=== PATIENT | female | born 1945 | race Caucasian/White ===

== ENCOUNTER 2020-01-17 16:18 | Inpatient (IN) | payer OTHER, MEDICAID, SELFPAY ==
[~2020-01-17] VITALS: Ht 152.4 cm; Wt 65.8 kg
[~2020-01-17 16:18] MED LIST: ISOS30TE PO; LOSA50TA57 PO; METO-624 PO; SIMV20TA1 PO; SITA100T8 PO; WARF-18 PO; [UNRECOGNIZED DRUG - CODE] PO
[2020-01-17 16:29] VITALS: BP 120/81
--- NOTE | 2020-01-17 16:46 | NUR ---
12 LEAD EKG READS [address] QUESADA. UNKNOWN IF PT HAS HX OF AFIB.
[2020-01-17] MEDS ORDERED: NACL 0.9% 1,000 ML IV ONE (16:55)
--- NOTE | 2020-01-17 17:09 | NUR ---
75/F C/O CHEST TIGHTNESS AND GEN WEAKNESS X 3 WEEKS. PT HR IS FLUCTUATING FROM 80S-130s AT THIS TIME. PER PT SHE HAS A PACEMAKER. DENIES PAIN AT THIS TIME. HISTORY LIMITED 2/2 NEZ PERCE. NO FAMILY AVAILABLE AT THIS TIME. PT CONNECTED TO BEDSIDE MONITOR. PT ALERT AND APPEARS ORIENTED. 12 LEAD EKG HAS ALREADY BEEN OBTAINED AND SHOWN TO DR. QUESADA. ERMD MADE AWARE OF PT STATUS. BEDRAILS UP, BED LOCKED & LOW. HX: DM, HTN, HYPOTHYROID RX: SEE MED REC
--- NOTE | 2020-01-17 17:10 | NUR ---
EVALUATING PT AT BEDSIDE WITH SURGICAL MASK AND GLOVES ONLY.
--- NOTE | 2020-01-17 17:11 | NUR ---
XRAY AT BEDSIDE
--- NOTE | 2020-01-17 17:20 | NUR ---
CIGAR BANDER AT BEDSIDE FOR BLOOD DRAW
--- NOTE | 2020-01-17 17:38 | NUR ---
DR QUESADA AT BEDSIDE
[2020-01-17 17:39] LABS: BASOPHILS # (AUTO) 0.1 K/uL (0.00-0.22); BASOPHILS % (AUTO) 0.8 % (0.0-2.0); EOSINOPHILS # (AUTO) 0.3 K/uL (0-0.4); EOSINOPHILS % (AUTO) 3.5 % (0.0-4.0); HEMATOCRIT 35.8 % (36-48); HEMOGLOBIN 12.3 g/dL (12.0-16.0); LYMPHOCYTES % (AUTO) 23.7 % (20.5-51.1); MEAN CORPUSCULAR HEMOGLOBIN 33 pg (27-31); MEAN CORPUSCULAR HGB CONC 34 g/dL (33-37); MEAN CORPUSCULAR VOLUME 95.3 fL (80-94); MONOCYTES # (AUTO) 0.5 K/uL (0.8-1.0); NEUTROPHILS # (AUTO) 5.5 K/uL (1.8-7.7); PLATELET COUNT (AUTO) 133 K/uL (140-450); RED BLOOD CELL COUNT(AUTO) 3.76 MIL/uL (4.20-5.40); RED CELL DISTRIBUTION WIDTH 14.6 % (11.6-13.7); WHITE BLOOD COUNT (AUTO) 8.3 K/uL (4.8-10.8)
--- NOTE | 2020-01-17 17:44 | NUR ---
COVID PRECAUTIONS INITIATED.
[2020-01-17] MEDS ORDERED: AZITHROMYCIN 250 MG TAB PO ONE (17:45)
--- NOTE | 2020-01-17 17:45 | NUR ---
PT CONTACT WAS INITIALLY MADE BY ME, ALISON DORAN, WITHOUT COVID PRECAUTION PPE. ONLY A SIMPLE MASK WAS WORN.
[2020-01-17 17:48] LABS: PROTHROMBIN TIME 15.1 secs (10.8-13.4)
[2020-01-17] MEDS ORDERED: cefTRIAXone 1,000 MG VIAL ONE (17:49)
[2020-01-17 17:50] LABS: ALBUMIN 3.2 g/dL (3.4-5.0); ANION GAP 14.4 (8-16); ASPARTATE AMINOTRANSFERASE 43 U/L (15-37); CARBON DIOXIDE 20.4 mmol/L (21-32); CHLORIDE 106 mmol/L (98-107); CREATININE 1.4 mg/dL (0.6-1.3); GLUCOSE 175 mg/dL (74-106); POTASSIUM 3.8 mmol/L (3.5-5.1); SODIUM SERUM 137 mmol/L (136-145); TOTAL BILIRUBIN 0.7 mg/dL (0.0-1.0); UREA NITROGEN, BLOOD 15 mg/dL (7-18)
[2020-01-17] MEDS ORDERED: CRUSHER, PILL MC ONE (18:09)
[2020-01-17] MEDS ORDERED: METOPROLOL 5 MG/5 ML VIAL IVP ONE (18:15)
[2020-01-17] MEDS ORDERED: METOPROLOL 5 MG/5 ML VIAL ONE (18:16)
--- NOTE | 2020-01-17 18:42 | NUR ---
URINE SAMPLE AND COVID SWAB WITH COVID PAPERWORK DROPPED OFF AT LAB.
--- NOTE | 2020-01-17 19:00 | NUR ---
SPOKE WITH HELEN FROM [facility]
[2020-01-17 19:08] LABS: APPEARANCE,URINE CLEAR (CLEAR); BILIRUBIN,URINE NEGATIVE (NEGATIVE); BLOOD, URINE NEGATIVE (NEGATIVE); COLOR,URINE YELLOW (YELLOW); LEUKOCYTE ESTERASE ,URINE 1+ (NEGATIVE); NITRITE, URINE NEGATIVE (NEGATIVE); UGLUCOSE NEGATIVE (NEGATIVE)
--- NOTE | 2020-01-17 19:14 | NUR ---
REPORT TO SHOSHANA TRINIDAD, TRANSFER OF CARE AT THIS TIME
[2020-01-17 19:16] LABS: RBC,URINE 0-5 /HPF (0-5)
--- NOTE | 2020-01-17 19:24 | NUR ---
PATIENT ALERT AND AWAKE, BREATHING EVEN AND UNLABORED
--- NOTE | 2020-01-17 19:29 | NUR ---
HEART RATE FLUCTUATES BETWEEN 98 TO 130, ERMD MADE AWARE
--- NOTE | 2020-01-17 20:30 | NUR ---
PATIENT ALERT AND AWAKE, BREATHING EVEN AND UNLABORED
--- NOTE | 2020-01-17 20:30 | NUR ---
PATIENT ALERT AND AWAKE, BREATHING EVEN AND UNLABORED
[2020-01-17] MEDS ORDERED: MAG SULF 2000 MG/WATER PREMIX 50 ML IV ONE (20:35)
--- NOTE | 2020-01-17 21:05 | NUR ---
Patient will be admitted to care of DR EMERY. Admited to TELE. Will go to room 127A. Belongings list completed. Report to MINDY TRINIDAD.
--- NOTE | 2020-01-17 21:05 | NUR ---
Admission done by Oscar TRINIDAD.Patient will be admitted to care of DR EMERY. Admited to TELE. Will go to room 127A. Belongings list completed. Report to MINDY TRINIDAD.
[2020-01-17 21:10] VITALS: BP 118/50
[2020-01-17] MEDS ORDERED: AMLO5TAB PO (21:14)
[2020-01-17] MEDS ORDERED: SITA100T8 PO (21:14)
[2020-01-17] MEDS ORDERED: ATOR20TA PO (21:14)
[2020-01-17] MEDS ORDERED: METO25TA14 PO (21:14)
--- NOTE | 2020-01-17 21:20 | NUR ---
RECEIVED REPORT FROM ER NURSE. PATIENT IS AWAKE, ALERT, AND COOPERATIVE. SPEAK HAITIAN UNDERSTAND A LITTLE BIT OF COOK ISLANDER. USE [employer] TO OBTAINED MEDICAL HISTORY. 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 ADMITTING DIAGNOSIS A-FIB, PNA R/O COVID. PATIENT RESPIRATION EVEN UNLABORED ON 2L NC O2. NO DISTRESS NOTED. BREATH SOUNDS DIMINISHED UPON AUSCULTATION. HEART RATE IRREGULAR. S1&S2 NOTED. BOWEL SOUNDS PRESENT IN ALL 4 QUADRANTS. ABDOMEN SOFT AND NON-TENDER. LAST BM 01/16/20. PLAN OF CARE WAS DISCUSSED. ALL SAFETY MEASURES IN PLACE. MRSA SCREEN DONE. VITALS WERE TAKEN. ORIENT PATIENT TO THE ROOM, CALL LIGHT, AND STAFF. BED IS AT LOW POSITION. CALL LIGHT WITHIN REACH AND VERBALIZES ITS USE. WILL CONTINUE TO MONITOR.
[2020-01-17] MEDS ORDERED: ONDANSETRON 4 MG/2 ML VIAL IVP PRN (22:10)
[2020-01-17] MEDS ORDERED: ACETAMINOPHEN 325 MG TAB PO PRN (22:10)
--- NOTE | 2020-01-17 23:35 | NUR ---
CHECKED PATIENT. PATIENT IS IN BED TALKING ON THE PHONE. NO DISTRESS NOTED. WILL CONTINUE TO MONITOR.
[2020-01-18] VITALS: BP 123/80
--- NOTE | 2020-01-18 | NUR ---
VITALS WERE TAKEN. PATIENT IN STABLE CONDITION. NO DISTRESS NOTED. WILL CONTINUE TO MONITOR.
--- NOTE | 2020-01-18 02:04 | NUR ---
CHECKED PATIENT. PATIENT SLEEPING RESPIRATION EVEN UNLABORED ON 2L NC O2. SATING 92%. NO DISTRESS NOTED. WILL CONTINUE TO MONITOR.
--- NOTE | 2020-01-18 03:55 | NUR ---
VITALS WERE TAKEN. PATIENT IN STABLE CONDITION. NO DISTRESS NOTED. WILL CONTINUE TO MONITOR
[2020-01-18 04:00] VITALS: BP 117/76
[2020-01-18 05:42] LABS: BASOPHILS # (AUTO) 0.1 K/uL (0.00-0.22); BASOPHILS % (AUTO) 0.6 % (0.0-2.0); EOSINOPHILS # (AUTO) 0.2 K/uL (0-0.4); HEMATOCRIT 39.3 % (36-48); HEMOGLOBIN 13.1 g/dL (12.0-16.0); LYMPHOCYTES # (AUTO) 1.5 K/uL (2.5-16.5); LYMPHOCYTES % (AUTO) 14.3 % (20.5-51.1); MEAN CORPUSCULAR HEMOGLOBIN 32 pg (27-31); MEAN CORPUSCULAR HGB CONC 34 g/dL (33-37); MEAN CORPUSCULAR VOLUME 96.3 fL (80-94); MONOCYTES # (AUTO) 0.4 K/uL (0.8-1.0); MONOCYTES % (AUTO) 3.5 % (1.7-9.3); NEUTROPHILS # (AUTO) 8.2 K/uL (1.8-7.7); NEUTROPHILS % (AUTO) 79.6 % (42.2-75.2); PLATELET COUNT (AUTO) 137 K/uL (140-450); RED BLOOD CELL COUNT(AUTO) 4.08 MIL/uL (4.20-5.40); RED CELL DISTRIBUTION WIDTH 14.6 % (11.6-13.7); WHITE BLOOD COUNT (AUTO) 10.3 K/uL (4.8-10.8)
[2020-01-18 07:05] LABS: ANION GAP 13.8 (8-16); CARBON DIOXIDE 21.8 mmol/L (21-32); CHLORIDE 106 mmol/L (98-107); CREATININE 1.3 mg/dL (0.6-1.3); GLUCOSE 190 mg/dL (74-106); POTASSIUM 3.6 mmol/L (3.5-5.1); SODIUM SERUM 138 mmol/L (136-145); UREA NITROGEN, BLOOD 12 mg/dL (7-18)
--- NOTE | 2020-01-18 07:11 | NUR ---
ENDORSED PATIENT TO DAY SHIFT NURSE. PATIENT IN STABLE CONDITION.
--- NOTE | 2020-01-18 07:12 | NUR ---
RECEIVED REPORT FROM SOLUTION ARCHITECT NURSE MINDY FOR CONTINUITY OF CARE. PT IN STABLE CONDITION. RESPIRATIONS EVEN AND UNLABORED, 02 2L VIA NC. IV IN TACT AND PATENT. SAFETY MEASURES IN PLACE. BED IN LOW POSITION. CALL LIGHT AT BEDSIDE. WILL CONTINUE TO MONITOR.
[2020-01-18 08:00] VITALS: BP 132/92
--- NOTE | 2020-01-18 08:59 | NUR ---
PATIENT HAS BEEN SCREENED AND CATEGORIZED MODERATE NUTRITION RISK. PATIENT WILL BE SEEN WITHIN 3-5 DAYS OF ADMISSION. 01/20/20 01/22/[address]
--- NOTE | 2020-01-18 09:06 | NUR ---
ASSISTED TO BATHROOM AT THIS TIME. PATIENT TOLERATED WELL STEADY GAIT. BED IN LOW POSITION. CALL LIGHT WITHIN REACH. WILL CONTINUE TO MONITOR.
--- NOTE | 2020-01-18 10:23 | NUR ---
DISCHARGE PLANNING: THIS IS A 75 Y/O FEMALE PATIENT FROM HOME, WHO CAME IN DUE TO GENERALIZED WEAKNESS AND INTERMITTENT CHEST PAIN. INITIAL DIAGNOSIS OF HEART DISEASE. CURRENT LABS INCLUDE WBC 10.3, H/H 13.1/39.3, NA/K 138/3.6, BUN/CREA 12/1.3 AND MAG 1.7. COVID 19 PENDING. MRSA NARES PENDING. URINE AND BLOOD CS PENDING. CARDIO CONSULT WITH DR. CUADRA IN PLACE FOR A FIB. ON AZITHROMYCIN AND ROCEPHIN. CXR ON ADMISSION SHOWED SMALL BILATERAL EFFUSIONS WITH ASSOCIATED BILATERAL BASILAR INFILTRATES OT ATELECTASIS. DC PLAN PENDING ON PATIENT'S RESPONSE TO TREATMENT. Addendum: 01/19/20 at 1204 by Hilda Livingston CM COVID TEST IS STILL PENDING. CURRENT LABS INCLUDE WBC 10.3, H/H 13.1/39.3, BMP WNL. ON AZITHROMYCIN AND ROCEPHIN. NEPHRO CONSULT IN PLACE AND SEEN - FOR RENAL U/S TODAY. DC PLAN BACK TO HOME ONCE STABLE. Addendum: 01/20/20 at 1157 by Hilda Livingston CM ON NASAL CANNULA AT 2 LPM-O2 SAT 92%. CURRENT LABS INCLUDE WBC 9.7, H/H 11.7/34.5, NA/K 138/3.5, BUN/CREA 9/1.3 AND ALB 2.6. ON AZITHROMYCIN AND ROCEPHIN. RENAL US NEGATIVE. NEPHRO CONSULT IN PLACE. DC PLAN PENDING ON PATIENT'S RESPONSE TO TREATMENT. Addendum: 01/20/20 at 1429 by Yen Giordano CM RECEIVED AN ORDER FROM YESIKA CHERRY MD TO SCHEDULE A FOLLOW UP APPOINTMENT. CONTACTED PCP [phone] TO SCHEDULE. SPOKE TO SUSIE, SHE STATED THAT PT. ALREADY HAS AN APPT SCHEDULED FOR January AT 9:45 AM. SUSIE STATED THAT PATIENT IS AWARE OF THE APPT. Addendum: 01/21/20 at 1415 by Carol Bean CM DC PLANNING: PT HAS ORDER WITH HOME O2 AND HOME HEALTH FOR SAFETY. CALLED [facility] [phone] SPOKE WITH NATALIE AVINA NOTIFIED HER , WAITING FOR PT EVAL , PER NATALIE JUNG TO FAX THE ORDER TO [phone] AND FAXED. KAILYN TO FOLLOW Addendum: 01/21/20 at 1715 by Hilda Livingston CM 1514: RECEIVED A CALL FROM KAILYN ESTRADA [facility], STATING THAT THEY DO NOT HAVE THE ORDER FOR HOME O2. FAXED THE ORDER TO [phone]. 1650: CONTACTED KAILYN ESTRADA TO FOLLOW UP, NO ANSWER. LEFT MESSAGE. Addendum: 01/22/20 at 1535 by Carol Bean CM DC PLANNING: RECEIVED A CALL FROM NATALIE [phone] ARRANGED HOME O2 AND PORTABLE O2 TANK IS WITH THE PATIENT AND ARRANGED HOME HEALTH WITH [facility] [phone]. PLAS CALL WHEN PATIENT HAS A DC ORDER. KAILYN TO FOLLOW Addendum: 01/25/20 at 1129 by Carol Bean CM EMAILED THE ORDER FOR OUT PATIENT CORRUGATOR OPERATOR HELPER APPOINTMENT TO KAILYN ESTRADA
--- NOTE | 2020-01-18 11:55 | NUR ---
PATIENT WATCHING TV AND TALKING ON CELLPHONE AT THIS TIME. PATIENT IN STABLE CONDITION. RESPIRATIONS EVEN AND UNLABORED, 02 SATURATION 91. BED IN LOW POSITION. CALL LIGHT AT BEDSIDE. WILL CONTINUE TO MONITOR.
[2020-01-18 12:00] VITALS: BP 114/79
--- NOTE | 2020-01-18 13:00 | NUR ---
PATIENT ALMOST FINISHED EATING, I OFFER INCENTIVE SPIROMETER, PATIENT ABLE TO TOLERATE THE INCENTIVE SPIROMETER, SHE IS AWARE TO USED MORE FREQUENTLY .
--- NOTE | 2020-01-18 13:01 | NUR ---
ATTEMPTED TO CALL PATIENT SHAHRZAD QUINTANILLA PER PATIENT REQUEST. NO ANSWER. BUSY SIGNAL NOT ABLE TO LEAVE A MESSAGE.
--- NOTE | 2020-01-18 14:10 | NUR ---
ATTEMPTED TO CALL PATIENT SHAHRZAD QUINTANILLA PER PATIENT REQUEST. NO ANSWER. BUSY SIGNAL NOT ABLE TO LEAVE A MESSAGE.
[2020-01-18 16:00] VITALS: BP 126/88
--- NOTE | 2020-01-18 16:25 | NUR ---
PATIENT SLEEP AT THIS TIME. RESPIRATIONS EVEN AND UNLABORED. BED IN LOW POSITION. CALL LIGHT AT BEDSIDE. WILL CONTINUE TO MONITOR.
[2020-01-18] MEDS: AZITHROMYCIN 500 MG in DEXTROSE 5% 250 ML IV SCH (19:00)
--- NOTE | 2020-01-18 19:14 | NUR ---
GAVE REPORT TO INTERMODAL TRUCK DRIVER NURSE RASHAD FOR CONTINUITY OF CARE. PATIENT IN STABLE CONDITION.
--- NOTE | 2020-01-18 19:15 | NUR ---
RECEIVED PATIENT IN STABLE CONDITION FROM AM SHIFT NURSE FOR CONTINUITY OF CARE. RESPIRATIONS EVEN, UNLABORED. CONTINUES ON O2 2L VIA NC. SKIN WARM, DRY. SALINE LOCK NOTED TO LEFT AC 20G PATENT/INTACT. NO C/O PAIN. NO S/SX ACUTE DISTRESS. ISOLATION PRECAUTIONS OBSERVED BY ALL STAFF. CALL LIGHT WITHIN REACH. WILL CONTINUE TO MONITOR.
[2020-01-18 20:00] VITALS: BP 115/84
--- NOTE | 2020-01-18 20:22 | NUR ---
SPOKE TO DR. POE, BINDER CASER FOR DR. EMERY, WITH ORDERS TO CONTINUE ALL HYPERTENSIVE, DIABETIC AND CHOLESTEROL MEDICATIONS FROM HOME. ORDERS NOTED AND CARRIED OUT.
[2020-01-18] MEDS: BLOOD GLUCOSE MONITORING 1 DEV DEV FS SCH (21:14)
[2020-01-18] MEDS: INSULIN LISPRO SLIDING SCALE 100 UNITS/ML VIAL SUBQ PRN (21:14)
--- NOTE | 2020-01-18 21:15 | NUR ---
PATIENT IN STABLE CONDITION. NO C/O PAIN. NO S/SX ACUTE DISTRESS. CALL LIGHT WITHIN REACH. WILL CONTINUE TO MONITOR.
[2020-01-18] MEDS: ISOSORBIDE MONONITRATE 30 MG TABER PO SCH (21:37)
--- NOTE | 2020-01-18 23:12 | NUR ---
PATIENT AWAKE AND IN STABLE CONDITION. NO C/O PAIN. NO S/SX ACUTE DISTRESS. CALL LIGHT WITHIN REACH. WILL CONTINUE TO MONITOR.
[2020-01-19] VITALS: BP 118/60
--- NOTE | 2020-01-19 01:46 | NUR ---
ASLEEP. CONTINUES IN STABLE CONDITION. NO C/O PAIN. NO S/SX ACUTE DISTRESS. CALL LIGHT WITHIN REACH. WILL CONTINUE TO MONITOR.
--- NOTE | 2020-01-19 03:04 | NUR ---
MADE ROUNDS. PATIENT IS ASLEEP. NO C/O PAIN. NO S/SX ACUTE DISTRESS. CALL LIGHT WITHIN REACH. WILL CONTINUE TO MONITOR.
[2020-01-19 04:00] VITALS: BP 122/74
--- NOTE | 2020-01-19 05:37 | NUR ---
PATIENT AWAKE. NO C/O PAIN. NO S/SX ACUTE DISTRESS. ISOLATION PRECAUTIONS OBSERVED BY ALL STAFF. CALL LIGHT WITHIN REACH. WILL CONTINUE TO MONITOR.
[2020-01-19] MEDS: BLOOD GLUCOSE MONITORING 1 DEV DEV FS SCH ×4 (06:34→21:02)
[2020-01-19] MEDS: INSULIN LISPRO SLIDING SCALE 100 UNITS/ML VIAL SUBQ PRN ×3 (06:34→22:28)
--- NOTE | 2020-01-19 06:48 | NUR ---
PATIENT IN STABLE CONDITION. NO C/O PAIN. NO S/SX ACUTE DISTRESS. SAFETY PRECAUTIONS IN PLACE. ISOLATION PRECAUTIONS OBSERVED. CALL LIGHT WITHIN REACH. WILL CONTINUE TO MONITOR.
--- NOTE | 2020-01-19 07:23 | NUR ---
RECEIVED REPORT FROM CERTIFIED MEDICINE AIDE NURSE RASHAD FOR CONTINUITY OF CARE. PT IS AAOX4, SLOVENIAN SPEAKING, AWAKE AND RESTING ON BED AT THIS TIME. RESPIRATION EVEN AND UNLABORED ON 2 LPM VIA NC. NO SIGNS OF DISTRESS NOTED. IV ON LAC 20G, CLEAN AND INTACT, TKO. SKIN CLEAN AND DRY. PT IS CONTINENT AND ABLE TO AMBULATORY TO THE BATHROOM. TELE MONITOR ATTACHED. SAFETY MEASURES IN PLACE. BED IN LOW POSITION AND CALL LIGHT WITHIN REACH. ENHANCED AND DROPLET PRECAUTION IN PLACE, SIGNS POSTED BY DOOR.
[2020-01-19 08:00] VITALS: BP 130/69
[2020-01-19] MEDS: ISOSORBIDE MONONITRATE 30 MG TABER PO SCH ×2 (08:48→20:49)
[2020-01-19] MEDS: amLODIPine 5 MG TAB PO SCH (08:48)
[2020-01-19] MEDS: LOSARTAN 50 MG TAB PO SCH (08:49)
[2020-01-19] MEDS: HYDROCHLOROTHIAZIDE 25 MG TAB PO SCH (08:49)
[2020-01-19] MEDS: METOPROLOL 25 MG TAB PO SCH (08:49)
--- NOTE | 2020-01-19 09:20 | NUR ---
CHECKED BP PRIOR TO MED ADMINISTER, BP 130/69 PULSE 120. ADMINISTERED MEDS PER MD ORDER, MEDS EDUCATION PROVIDED AND PT SAID OK. PT TOLERATED PO MEDS WELL. PT COMPLAINED OF IV SITE DISCOMFORT, ASSESSED IV SITE, IV RED AND INFILTRATED. RESTARTED NEW IV ON LAC 22G, CLEAN AND INTACT, DATED, TKO, PT TOLERATED WELL. PT AWAKE AND RESTING ON BED AT THIS TIME. DENIED SOB, PAIN AND DIZZINESS. NO SIGNS OF DISTRESS NOTED, ON 2LPM VIANC, SPO2 AT 93%. SAFETY MEASURES IN PLACE. TELE MONITOR ATTACHED.
--- NOTE | 2020-01-19 10:55 | NUR ---
RECEIVED A CALL FROM PT'S DAUGHTER SOCORRO, UPDATED SOCORRO WITH PT'S CURRENT CONDITION AND SHE WAS AWARE.
--- NOTE | 2020-01-19 11:38 | NUR ---
CHECKED BLOOD GLUCOSE AND RECEIVED 162, WILL ADMINISTER COVERAGE WHEN LUNCH ARRIVES. VITAL SIGNS TAKEN. PT IS AWAKE AND RESTING ON BED. NO SIGNS OF DISTRESS NOTED. TELE MONITOR ATTACHED. SAFETY MEASURES IN PLACE.
[2020-01-19 12:00] VITALS: BP 120/65
--- NOTE | 2020-01-19 12:07 | NUR ---
PT RECEIVED HER LUNCH TRAY, ADMINISTERED 2 UNITS HUMALOG FOR BLOOD GLUCOSE 162 VIA SUBQ L ARM, PT TOLERATED WELL. MED EDUCATION PROVIDED AND PT SAID OK. PT IS GETTING READY TO EAT HER LUNCH. NO ACUTE DISTRESS NOTED. TELE MONITOR ATTACHED. SAFETY MEASURES IN PLACE. BED LOCKED.
--- NOTE | 2020-01-19 13:24 | NUR ---
PT IS RESTING ON BED COMFORTABLY. RESPIRATION EVEN AND UNLABORED ON 2 LPM VIA NC, SPO2 AT 91%. NO SIGNS OF ACUTE DISTRESS NOTED. TELE MONITOR ATTACHED. SAFETY MEASURES IN PLACE.
--- NOTE | 2020-01-19 15:11 | NUR ---
PT IS AWAKE AND WATCHING TV ON BED. RESPIRATION EVEN AND UNLABORED ON 2 LPM VIA NC, SPO2 AT 92%. NO SIGNS OF ACUTE DISTRESS NOTED. TELE MONITOR ATTACHED. SAFETY MEASURES IN PLACE.
[2020-01-19 16:00] VITALS: BP 135/70
--- NOTE | 2020-01-19 16:22 | NUR ---
CHECKED BLOOD GLUCOSE AND RECEIVED 125, NO COVERAGE NEEDED. INSTRUCTED PT TO FOCUS ON BREATHING, SPO2 AT 93% AT THIS TIME. DENIED PAIN,SOB AND DIZZINESS. NO SIGNS OF DISTRESS NOTED. TELE MONITOR ATTACHED. SAFETY MEASURES IN PLACE.
--- NOTE | 2020-01-19 17:31 | NUR ---
PT AWAKE AND WATCHING TV ON BED AT THIS TIME. NO ACUTE DISTRESS NOTED. TELE MONITOR ATTACHED. SAFETY MEASURES IN PLACE.
--- NOTE | 2020-01-19 18:04 | NUR ---
ADMINISTERED ANTIBIOTIC ROCEPHIN VIA IVPB PER MD ORDER, MED EDUCATION PROVIDED AND PT SAID OK, PT IS EATING DINNER AT THIS TIME. NO SIGNS OF DISTRESS NOTED. TELE MONITOR ATTACHED. SAFETY MEASURES IN PLACE.
[2020-01-19] MEDS: AZITHROMYCIN 500 MG in DEXTROSE 5% 250 ML IV SCH (18:57)
--- NOTE | 2020-01-19 19:05 | NUR ---
ADMINISTERED ANTIBIOTIC AZITHROMYCIN VIA IVPB PER MD ORDER, MED EDUCATION PROVIDED AND PT SAID OK. PT AWAKE AND WATCHING TV AT THIS TIME. NO SIGNS OF DISTRESS NOTED. TELE MONITOR ATTACHED. SAFETY MEASURES IN PLACE.
--- NOTE | 2020-01-19 19:12 | NUR ---
ENDORSED PT AT WINDOW-SIDE TO BUILDING CLEANER NURSE MIMILIN FOR CONTINUITY OF CARE. PT AWAKE AND WATCHING TV ON BED AT THIS TIME. NO SIGNS OF DISTRESS NOTED. TELE MONITOR ATTACHED. PT IS IN STABLE CONDITION.
--- NOTE | 2020-01-19 19:13 | NUR ---
RECEIVED ENDORSEMENT FROM AM SHIFT RN. PATIENT IS IN BED, AWAKE. RESPIRATION EVEN AND UNLABORED. NO SOB. WITH O2 VIA NC AT 92%. IV ANTIBIOTIC INFUSING TO LAC 22G. PLAN OF CARE WAS DISCUSSED. CALL LIGHT WITHIN REACH. WILL CONTINUE TO MONITOR.
--- NOTE | 2020-01-19 19:45 | NUR ---
PATIENT C/O PAIN LAC IV SITE. NOTED IV CANNULA WAS OUT OF VEIN. REMOVED IV CANNULA. ELEVATED LEFT ARM WITH PILLOW.
[2020-01-19 20:00] VITALS: BP 117/71
[2020-01-19] MEDS: SIMVASTATIN 20 MG TAB PO SCH (20:50)
[2020-01-19] MEDS: ATORVASTATIN 20 MG TAB PO SCH (20:51)
--- NOTE | 2020-01-19 21:02 | NUR ---
DUE MEDS GIVEN ORDERED. TOLERATED WELL. NO SOB. DENIES PAIN. CALL LIGHT WITHIN REACH. WILL CONTINUE TO MONITOR.
--- NOTE | 2020-01-19 21:21 | NUR ---
GENTRY FROM LAB CALLED AND SAID THAT PATIENT COVID 19 TEST IS NEGAT[address] INFORMED [address] EMERY. NNO.
--- NOTE | 2020-01-19 23:00 | NUR ---
RE-INSERTED NEW IV LINE TO RIGHT HAND 24G, ATTEMPTED X2 WITH GOOD BLOOD RETURN.
[2020-01-20] VITALS: BP 116/62
--- NOTE | 2020-01-20 00:12 | NUR ---
ASSISTED PATIENT TO GO TO RESTROOM. V/S TAKEN AND RECORDED. DENIES PAIN. NO SOB. CALL LIGHT WITHIN REACH. WILL CONTINUE TO MONITOR.
--- NOTE | 2020-01-20 03:46 | NUR ---
PATIENT IS SLEEPING. RESPIRATION EVEN AND UNLABORED. WILL CONTINUE TO MONITOR.
[2020-01-20 04:00] VITALS: BP 122/70
--- NOTE | 2020-01-20 05:39 | NUR ---
PATIENT IS ASLEEP. NO SOB. NOT IN ANY ACUTE DISTRESS. O2 SAT AT 92% VIA NC AT 2LPM.
[2020-01-20 06:13] LABS: ALBUMIN 2.6 g/dL (3.4-5.0); ANION GAP 12.7 (8-16); ASPARTATE AMINOTRANSFERASE 17 U/L (15-37); CARBON DIOXIDE 23.8 mmol/L (21-32); CHLORIDE 105 mmol/L (98-107); CREATININE 1.3 mg/dL (0.6-1.3); GLUCOSE 174 mg/dL (74-106); POTASSIUM 3.5 mmol/L (3.5-5.1); SODIUM SERUM 138 mmol/L (136-145); TOTAL BILIRUBIN 0.8 mg/dL (0.0-1.0); UREA NITROGEN, BLOOD 9 mg/dL (7-18)
[2020-01-20] MEDS: BLOOD GLUCOSE MONITORING 1 DEV DEV FS SCH ×4 (06:30→20:05)
[2020-01-20] MEDS: INSULIN LISPRO SLIDING SCALE 100 UNITS/ML VIAL SUBQ PRN ×4 (06:37→20:11)
--- NOTE | 2020-01-20 07:30 | NUR ---
PATIENT IS ASLEEP. NO SOB. ENDORSED PATIENT TO AM SHIFT RN FOR CONTINUITY OF CARE.
[2020-01-20 07:44] LABS: BASOPHILS % (AUTO) 0.2 % (0.0-2.0); EOSINOPHILS # (AUTO) 0.7 K/uL (0-0.4); EOSINOPHILS % (AUTO) 6.7 % (0.0-4.0); HEMATOCRIT 34.5 % (36-48); HEMOGLOBIN 11.7 g/dL (12.0-16.0); LYMPHOCYTES # (AUTO) 1.3 K/uL (2.5-16.5); LYMPHOCYTES % (AUTO) 12.9 % (20.5-51.1); MEAN CORPUSCULAR HEMOGLOBIN 33 pg (27-31); MEAN CORPUSCULAR HGB CONC 34 g/dL (33-37); MEAN CORPUSCULAR VOLUME 96.1 fL (80-94); MONOCYTES # (AUTO) 0.4 K/uL (0.8-1.0); MONOCYTES % (AUTO) 4.4 % (1.7-9.3); NEUTROPHILS # (AUTO) 7.4 K/uL (1.8-7.7); NEUTROPHILS % (AUTO) 75.8 % (42.2-75.2); PLATELET COUNT (AUTO) 141 K/uL (140-450); RED BLOOD CELL COUNT(AUTO) 3.59 MIL/uL (4.20-5.40); RED CELL DISTRIBUTION WIDTH 14.7 % (11.6-13.7); WHITE BLOOD COUNT (AUTO) 9.7 K/uL (4.8-10.8)
--- NOTE | 2020-01-20 07:46 | NUR ---
SHIFT REPORT RECEIVED FROM PRODUCT MANAGEMENT INTERNSHIP NURSE. PT IS IN BED AWAKE AND RESPONSIVE. NOTED WITH LOW O2 SATURATION AT 91%. HOWEVER NO DISTRESS NOTED. WILL CONTINUE TO MONITOR. CALL LIGHT IN REACH.
[2020-01-20 08:00] VITALS: BP 133/61
[2020-01-20] MEDS: HYDROCHLOROTHIAZIDE 25 MG TAB PO SCH (08:08)
[2020-01-20] MEDS: LOSARTAN 50 MG TAB PO SCH (08:08)
[2020-01-20] MEDS: amLODIPine 5 MG TAB PO SCH (08:09)
[2020-01-20] MEDS: METOPROLOL 25 MG TAB PO SCH (08:09)
[2020-01-20] MEDS: ISOSORBIDE MONONITRATE 30 MG TABER PO SCH ×2 (08:09→20:04)
--- NOTE | 2020-01-20 10:49 | NUR ---
PT HEART RATE WAS IN THE RANGE OF [address] EMERY. DR FALCON RETURNED THE CALL. NOTIFIED THE DR FALCON OF PT'S ELEVATED HEART RATE. PER DR FALCON GIVE CARDIZEM 60 MG Q8HRS PO. TELEPHONE ORDER REPEATED AND VERIFIED.
[2020-01-20 12:00] VITALS: BP 110/80
[2020-01-20] MEDS: DILTIAZEM 60 MG TAB PO SCH ×2 (14:02→20:04)
--- NOTE | 2020-01-20 14:52 | NUR ---
PT IS IN BED. NOTED WITH HEART RATE AT 115 ON THE MONITOR. PT IS AWAKE AND RESPONSIVE. WILL CONTINUE TO MONITOR. CALL LIGHT IN REACH.
[2020-01-20 16:00] VITALS: BP 108/58
[2020-01-20] MEDS ORDERED: DILTIAZEM 25 MG/5 ML VIAL IVP PRN (16:00)
--- NOTE | 2020-01-20 17:45 | NUR ---
PT IS IN BED HAVING DINNER AT THIS TIME. PT ON 2L NC SATURATION AT 92%. NO DISTRESS NOTED. WILL CONTINUE TO MONITOR. CALL LIGHT IN REACH.
[2020-01-20] MEDS: AZITHROMYCIN 500 MG in DEXTROSE 5% 250 ML IV SCH (18:46)
--- NOTE | 2020-01-20 19:23 | NUR ---
SHIFT REPORT GIVEN TO STRUCTURAL ENGINEERING PROJECT MANAGER NURSE. PT IS STABLE. CALL LIGHT IN REACH.
--- NOTE | 2020-01-20 19:24 | NUR ---
RECEIVED REPORT FROM TODDLER CAREGIVER NURSE JUAN JOSE FOR CONTINUITY OF CARE. PT IS AAOX4, ARABIC SPEAKING, AWAKE AND RESTING ON BED AT THIS TIME. RESPIRATION EVEN AND UNLABORED ON 2 LPM VIA NC. IV SITE ON RH 24G, PATENT, INTACT, AND ASYMPTOMATIC, SL. SKIN INTACT, WARM AND DRY TO TOUCH. PT IS CONTINENT AND ABLE TO AMBULATORY TO THE BATHROOM. TELE MONITOR ATTACHED. SAFETY MEASURES IN PLACE. BED IN LOW POSITION AND CALL LIGHT WITHIN REACH.
[2020-01-20 20:00] VITALS: BP 111/66
[2020-01-20] MEDS: ATORVASTATIN 20 MG TAB PO SCH (20:04)
[2020-01-20] MEDS: SIMVASTATIN 20 MG TAB PO SCH (20:04)
--- NOTE | 2020-01-20 20:11 | NUR ---
GIVEN LIPITOR, CARDIZEM, IMDUR, AND ZOCOR MD ORDERED. BS CHECKED, 185, ADMINISTERED INSULIN SLIDING SCALE. PT TOLERATED WELL.
--- NOTE | 2020-01-20 22:02 | NUR ---
PT SLEEPING IN BED COMFORTABLY. NO ACUTE DISTRESS NOTED.
--- NOTE | 2020-01-20 23:04 | NUR ---
PT C/O ABD PAIN 3-12/24, ADMINISTERED TYLENOL MD ORDERED. PT TOLERATED WELL.
[2020-01-21] VITALS: BP 97/43
--- NOTE | 2020-01-21 02:16 | NUR ---
PT SLEEPING IN BED COMFORTABLY. NO ACUTE DISTRESS NOTED.
--- NOTE | 2020-01-21 03:55 | NUR ---
VS CHECKED, O2SAT DECREASED TO 88%. INCREASE O2 TO 4LPM, O2SAT INCREASED TO 93%
[2020-01-21 04:00] VITALS: BP 97/52
--- NOTE | 2020-01-21 04:10 | NUR ---
GIVEN CARDIZEM MD ORDERED. PT TOLERATED WELL.
[2020-01-21] MEDS: DILTIAZEM 60 MG TAB PO SCH ×3 (04:11→21:51)
[2020-01-21] MEDS: BLOOD GLUCOSE MONITORING 1 DEV DEV FS SCH ×4 (05:42→20:21)
[2020-01-21] MEDS: INSULIN LISPRO SLIDING SCALE 100 UNITS/ML VIAL SUBQ PRN ×4 (05:44→20:23)
--- NOTE | 2020-01-21 05:44 | NUR ---
BS CHECKED, 176, ADMINISTERED INSULIN SLIDING SCALE. PT TOLERATED WELL.
--- NOTE | 2020-01-21 06:51 | NUR ---
PT IN STABLE CONDITION. WILL ENDORSE PT TO DAY SHIFT NURSE FOR CONTINUOUS CARE.
--- NOTE | 2020-01-21 07:10 | NUR ---
RECEIVED REPORT FROM TITLE SPECIALIST NURSE. PT IS CURRENTLY SLEEPING IN BED. PT SHOWS NO SIGNS OF DISTRESS. SKIN IS INTACT WITH IV ASYMPTOMATIC, PATENT AND IV RUNNING PER ORDER. RESPIRATIONS ARE EVEN AND UNLABORED ON 4L NASAL CANNULA. PT DOES NOT COMPLAIN OF PAIN AT THIS TIME. SAFETY MEASURES IN PLACE, CALL LIGHT WITHIN REACH, AND WILL CONTINUE TO MONITOR.
[2020-01-21 07:16] LABS: BASOPHILS % (AUTO) 0.2 % (0.0-2.0); EOSINOPHILS # (AUTO) 0.8 K/uL (0-0.4); HEMATOCRIT 34.1 % (36-48); HEMOGLOBIN 11.6 g/dL (12.0-16.0); LYMPHOCYTES # (AUTO) 0.9 K/uL (2.5-16.5); LYMPHOCYTES % (AUTO) 10.4 % (20.5-51.1); MEAN CORPUSCULAR HEMOGLOBIN 32 pg (27-31); MEAN CORPUSCULAR HGB CONC 34 g/dL (33-37); MEAN CORPUSCULAR VOLUME 95.1 fL (80-94); MONOCYTES # (AUTO) 0.5 K/uL (0.8-1.0); MONOCYTES % (AUTO) 5.6 % (1.7-9.3); NEUTROPHILS # (AUTO) 6.2 K/uL (1.8-7.7); NEUTROPHILS % (AUTO) 73.8 % (42.2-75.2); PLATELET COUNT (AUTO) 135 K/uL (140-450); RED BLOOD CELL COUNT(AUTO) 3.59 MIL/uL (4.20-5.40); RED CELL DISTRIBUTION WIDTH 14.7 % (11.6-13.7); WHITE BLOOD COUNT (AUTO) 8.4 K/uL (4.8-10.8)
[2020-01-21 08:00] VITALS: BP 112/57
[2020-01-21] MEDS: METOPROLOL 25 MG TAB PO SCH (08:31)
[2020-01-21] MEDS: LOSARTAN 50 MG TAB PO SCH (08:32)
[2020-01-21] MEDS: HYDROCHLOROTHIAZIDE 25 MG TAB PO SCH (08:32)
[2020-01-21] MEDS: amLODIPine 5 MG TAB PO SCH (08:32)
[2020-01-21] MEDS: ISOSORBIDE MONONITRATE 30 MG TABER PO SCH ×2 (08:33→21:50)
--- NOTE | 2020-01-21 08:35 | NUR ---
MEDICATIONS ADMINISTERED PER ORDER AND TOLERATED WELL. PT STATES THAT SHE IS COLD AND WANTS THE AIR TURNED OFF WITH ANOTHER BLANKET. PT ALSO STATES THAT SHE HAS A HARD TIME SWALLOWING MEDICATIONS AND WOULD LIKE MEDICATIONS TO BE CUT IN HALF. SAFETY MEASURES IN PLACE AND WILL CONTINUE TO MONITOR.
[2020-01-21] MEDS ORDERED: CRUSHER, PILL MC ONE (08:39)
[2020-01-21 08:41] LABS: ALBUMIN 2.7 g/dL (3.4-5.0); ANION GAP 14.9 (8-16); ASPARTATE AMINOTRANSFERASE 23 U/L (15-37); CARBON DIOXIDE 22.3 mmol/L (21-32); CHLORIDE 100 mmol/L (98-107); CREATININE 1.6 mg/dL (0.6-1.3); GLUCOSE 180 mg/dL (74-106); MAGNESIUM 1.7 mg/dL (1.8-2.4); POTASSIUM 3.2 mmol/L (3.5-5.1); SODIUM SERUM 134 mmol/L (136-145); TOTAL BILIRUBIN 0.7 mg/dL (0.0-1.0); UREA NITROGEN, BLOOD 12 mg/dL (7-18)
--- NOTE | 2020-01-21 10:50 | NUR ---
PT IS CURRENTLY SLEEPING AND IS EASILY AROUSED TO NAME. PT DOES NOT COMPLAIN OF BEING COLD ANYMORE AND NO SIGNS OF DISTRESS NOTED. SAFETY MEASURES IN PLACE AND WILL CONTINUE TO MONITOR.
[2020-01-21 12:00] VITALS: BP 107/62
--- NOTE | 2020-01-21 12:34 | NUR ---
MEDICATIONS ADMINISTERED PER ORDER AND TOLERATED WELL. PT DOES NOT COMPLAIN OF PAIN AT THIS TIME. BLOOD GLUCOSE WAS 172 AND 2 UNITS OF INSULIN WERE ADMINISTERED PER PARAMETERS. SAFETY MEASURES IN PLACE AND WILL CONTINUE TO MONITOR.
--- NOTE | 2020-01-21 13:20 | NUR ---
PER PROTOCOL ADDED HUMIDIFIER
--- NOTE | 2020-01-21 14:02 | NUR ---
PT AMBULATED TO THE RESTROOM AND TOOK OFF NASAL CANNULA. PT DESATURATED TO 84% ON ROOM AIRE. NASAL CANNULA WAS PLACED WITH 4L OF OXYGEN AND PT SATURATIONS WENT UP TO 93%. SAFETY MEASURES IN PLACE AND WILL CONTINUE TO MONITOR.
[2020-01-21 16:00] VITALS: BP 91/50
--- NOTE | 2020-01-21 16:34 | NUR ---
PT BLOOD GLUCOSE WAS 159 THEREFORE 2 UNITS OF INSULIN WERE ADMINISTERED PER PARAMETERS. PT DOES NOT HAVE ANY OTHER COMPLAINTS AT THIS TIME. SAFETY MEASURES IN PLACE AND WILL CONTINUE TO MONITOR.
--- NOTE | 2020-01-21 17:49 | NUR ---
ADMINISTERED MEDICATIONS PER ORDER AND TOLERATED WELL. PT IS ALERT, AWAKE, AND LAYING IN BED. NO COMPLAINTS OF PAIN OR SIGNS OF DISTRESS NOTED. SAFETY MEASURES IN PLACE AND WILL CONTINUE TO MONITOR.
[2020-01-21] MEDS: AZITHROMYCIN 500 MG in DEXTROSE 5% 250 ML IV SCH (18:40)
--- NOTE | 2020-01-21 18:44 | NUR ---
ADMINISTERED MEDICATION PER ORDER AND TOLERATED WELL. PT DOES NOT COMPLAIN OF PAIN AT THIS TIME OR SHOW SIGNS OF DISTRESS. SAFETY MEASURES I NPLACE AND WILL CONTINUE TO MONITOR.
--- NOTE | 2020-01-21 18:45 | NUR ---
WILL ENDORSE TO HOUSEKEEPING ATTENDANT NURSE FOR CONTINUITY OF CARE.
--- NOTE | 2020-01-21 19:05 | NUR ---
RECEIVED REPORT FROM INTELLIGENCE ENGINEER NURSE. PT IS CURRENTLY SLEEPING IN BED, EASILY AWAKENED BY VERBAL STIMULI PT SHOWS NO SIGNS OF DISTRESS. SKIN IS INTACT WITH IV ASYMPTOMATIC, PATENT AND IV RUNNING PER ORDER. RESPIRATIONS ARE EVEN AND UNLABORED ON 4L NASAL CANNULA. PT DOES NOT COMPLAIN OF PAIN AT THIS TIME. SAFETY MEASURES IN PLACE, CALL LIGHT WITHIN REACH, AND WILL CONTINUE TO MONITOR.
--- NOTE | 2020-01-21 19:15 | NUR ---
O2 WAS DELIVERED AT BEDSIDE DME'S FOR HOME ( FOR DISCHARGE )
[2020-01-21] MEDS ORDERED: POTASSIUM CHLORIDE 10 MEQ TABER PO ONE ×2 (19:30→22:01)
--- NOTE | 2020-01-21 19:45 | NUR ---
KELTON ENGEL MADE ROUNDS WAS AT BEDSIDE. WILL CARRY OUT ORDERS
[2020-01-21 20:00] VITALS: BP 106/53
[2020-01-21] MEDS: ATORVASTATIN 20 MG TAB PO SCH (20:00)
[2020-01-21] MEDS: SIMVASTATIN 20 MG TAB PO SCH (21:50)
--- NOTE | 2020-01-21 22:02 | NUR ---
PT HAS 2 STATINS 1 FOR 1999, ATORVASTATIN (LIPITOR) AND ANOTHER ONE AT 2099 SIMVAVSTATIN (ZOCOR), NOT SCANNED BECAUSE HAD TO VERIFY THE ORDER 1ST, VERIFIED W/ CHARGE NURSE THE MEDICATION THUS MANUALLY INPUTTED.
[2020-01-22] VITALS: BP 120/70
--- NOTE | 2020-01-22 00:20 | NUR ---
ROUNDS MADE, PT TRYING TO SLEEP, NO COMPLAINTS OF PAIN,IS COMFORTABLE, NO RESPIRATORY DISTRESS
--- NOTE | 2020-01-22 01:40 | NUR ---
PATIENT, SLEEPING NO COMPLAINTS OF PAIN, NO RESPIRATORY DISTRESS, WILL CONTINUE TO MONITOR
[2020-01-22 04:00] VITALS: BP 120/72
[2020-01-22] MEDS: DILTIAZEM 60 MG TAB PO SCH ×3 (05:46→21:06)
[2020-01-22] MEDS: BLOOD GLUCOSE MONITORING 1 DEV DEV FS SCH ×4 (05:47→21:11)
--- NOTE | 2020-01-22 07:05 | NUR ---
RECEIVED REPORT FROM NIGHT NURSE PT IS AWAKE ON OXYGEN AT 4 LPM VIA NC, NO DISTRESS NOTED, SAFETY MEASURES IN PLACE AND CALL LIGHT WITHIN REACH. WILL CONTINUE TO MONITOR.
[2020-01-22 07:17] LABS: BASOPHILS % (AUTO) 0.4 % (0.0-2.0); EOSINOPHILS % (AUTO) 11.2 % (0.0-4.0); HEMATOCRIT 32.3 % (36-48); LYMPHOCYTES # (AUTO) 0.7 K/uL (2.5-16.5); MEAN CORPUSCULAR HEMOGLOBIN 32 pg (27-31); MEAN CORPUSCULAR HGB CONC 34 g/dL (33-37); MEAN CORPUSCULAR VOLUME 95.1 fL (80-94); MONOCYTES # (AUTO) 0.4 K/uL (0.8-1.0); MONOCYTES % (AUTO) 5.2 % (1.7-9.3); NEUTROPHILS # (AUTO) 6.5 K/uL (1.8-7.7); NEUTROPHILS % (AUTO) 75.2 % (42.2-75.2); PLATELET COUNT (AUTO) 136 K/uL (140-450); RED CELL DISTRIBUTION WIDTH 14.9 % (11.6-13.7); WHITE BLOOD COUNT (AUTO) 8.7 K/uL (4.8-10.8)
[2020-01-22 07:21] LABS: ALBUMIN 2.5 g/dL (3.4-5.0); ANION GAP 13.1 (8-16); ASPARTATE AMINOTRANSFERASE 34 U/L (15-37); CARBON DIOXIDE 23.7 mmol/L (21-32); CHLORIDE 101 mmol/L (98-107); CREATININE 1.7 mg/dL (0.6-1.3); GLUCOSE 127 mg/dL (74-106); POTASSIUM 3.8 mmol/L (3.5-5.1); SODIUM SERUM 134 mmol/L (136-145); TOTAL BILIRUBIN 0.6 mg/dL (0.0-1.0); UREA NITROGEN, BLOOD 12 mg/dL (7-18)
[2020-01-22 08:00] VITALS: BP 112/54
--- NOTE | 2020-01-22 08:20 | NUR ---
PT OXYGEN SATURATION IS 89% AND INFORMED RT JORGE. HE ORDERED TO INCREASE THE OXYGEN LEVEL TO 5LPM. WILL CONTINUE TO MONITOR.
--- NOTE | 2020-01-22 08:45 | NUR ---
CHECK VITAL SIGNS PRIOR TO BP MEDICATIONS. BP 112/54 [place] [address] FALCON ORDERED TO HOLD OTHER BP MEDICATIONS. WILL CONTINUE TO MONITOR.
[2020-01-22] MEDS: METOPROLOL 25 MG TAB PO SCH (08:49)
[2020-01-22] MEDS: LOSARTAN 50 MG TAB PO SCH (08:54)
[2020-01-22] MEDS: ISOSORBIDE MONONITRATE 30 MG TABER PO SCH ×2 (08:54→21:06)
[2020-01-22] MEDS: HYDROCHLOROTHIAZIDE 25 MG TAB PO SCH (08:55)
[2020-01-22] MEDS: amLODIPine 5 MG TAB PO SCH (08:55)
--- NOTE | 2020-01-22 09:52 | NUR ---
PT HAD PHYSICAL THERAPY EXERCISE THIS TIME. POST GAIT O2 SAT 87% AT ROOM AIR. PT IS STABLE.
--- NOTE | 2020-01-22 09:55 | NUR ---
PT OUT FOR CT CHEST W/O CONTRAST AT THIS TIME.
--- NOTE | 2020-01-22 10:20 | NUR ---
PT IS BACK TO HER ROOM AT THIS TIME.CHECK VITAL SIGNS PRIOR TO MEDICATION, BP 103/42 PA 67 02 SAT 91. WILL CONTINUE TO MONITOR.
[2020-01-22] MEDS ORDERED: FUROSEMIDE 100 MG/10 ML VIAL IV SCH (10:30)
[2020-01-22 10:35] LABS: PROTHROMBIN TIME 10.3 secs (10.8-13.4)
[2020-01-22] MEDS: INSULIN LISPRO SLIDING SCALE 100 UNITS/ML VIAL SUBQ PRN ×2 (11:16→16:05)
--- NOTE | 2020-01-22 11:19 | NUR ---
ECHOCARDIOGRAM OF THE HEART AT THIS TIME. BLOOD GLUCOSE MONITORING DUE AND GAVE 2 UNITS OF INSULIN. WILL CONTINUE TO MONITOR.
[2020-01-22 12:00] VITALS: BP 107/50
--- NOTE | 2020-01-22 12:58 | NUR ---
MEDICATIONS DUE GIVEN CHECK VITAL SIGNS PRIOR TO MEDICATION. BP 101/50, VT: 121 AND O2 SAT 91%. WILL CONTINUE TO MONITOR.
--- NOTE | 2020-01-22 14:46 | NUR ---
01/22/20 RD INITIAL ASSESSMENT COMPLETED PLEASE REFER TO NUTRITION ASSESSMENT UNDER CARE ACTIVITY FOR ESTIMATED NUTRITIONAL NEEDS. 1. RECOMMEND MECHANICAL SOFT NA2GM, CCHO 60GM DIET TOLERATED 2. RECOMMEND GLUCERNA BID 3. ENCOURAGE PO INTAKE 4. RD TO FOLLOW-UP 3-5 DAYS, MODERATE RISK CM FUENTES, FLORES
[2020-01-22 16:00] VITALS: BP 105/51
--- NOTE | 2020-01-22 19:15 | NUR ---
ENDORSED PT TO NICE NURSE PT IS STABLE.
--- NOTE | 2020-01-22 19:15 | NUR ---
RECEIVED PT AAOX4 , NID - O2 SAT. WNL , ON O2 AT 4LPM/NC .IV SITE INTACT AND PATENT . DENIES ANY PAIN , ON TELE MONITOR. SAFETY MEASURES IN PLACE . POC DISCUSSED AND VERBALIZE UNDERSTANDING . WILL CONT. TO MONITOR.
[2020-01-22 20:00] VITALS: BP 112/61
[2020-01-22] MEDS: ATORVASTATIN 20 MG TAB PO SCH (20:00)
[2020-01-22] MEDS: SIMVASTATIN 20 MG TAB PO SCH (21:06)
--- NOTE | 2020-01-22 22:00 | NUR ---
MADE ROUNDS , NO COMPLAIN MADE ,RESTING ON BED COMFORTABLY - ON TELE MONITOR.
[2020-01-23] VITALS: BP 122/62
--- NOTE | 2020-01-23 | NUR ---
MADE ROUNDS , NO S/S OF ACUTE DISTRESS NOTED AT THIS TIME . WILL CONT. TO MONITOR.
--- NOTE | 2020-01-23 02:00 | NUR ---
MADE ROUNDS , SLEEPING . CHEST RISE AND FALL EQUALLY . ON TELE MONITOR.
[2020-01-23 04:00] VITALS: BP 114/62
--- NOTE | 2020-01-23 04:00 | NUR ---
MADE ROUNDS , NO COMPLAIN MADE , O2 SAT WNL.
[2020-01-23] MEDS: BLOOD GLUCOSE MONITORING 1 DEV DEV FS SCH ×4 (05:34→20:32)
[2020-01-23] MEDS: DILTIAZEM 60 MG TAB PO SCH ×3 (05:34→20:21)
--- NOTE | 2020-01-23 07:20 | NUR ---
RECEIVED REPORT FROM NIGHT NURSE FOR CONTINUITY OF CARE, PT IS ASLEEP, RESPIRATIONS ARE EVEN AND UNLABORED ON 4L NASAL CANNULA O2, PT HAS RIGHT HAND 24G SALINE LOCK, PT HAS SCD ON, SAFETY MEASURES IN PLACE, SKIN IS INTACT, PT ON CARDIAC TELEMONITOR FOR HX OF A FIB, PT ON LOW SODIUM DIET, PT IS CONTINENT, PT IS STABLE, UPDATED WHITEBOARD, ALL NEEDS MET AT THIS TIME, WILL CONTINUE TO MONITOR, CALL LIGHT WITHIN REACH.
--- NOTE | 2020-01-23 07:20 | NUR ---
ENDORSED - PT - STABLE.
[2020-01-23 08:00] VITALS: BP 103/51
[2020-01-23] MEDS: ENOXAPARIN 40 MG/0.4 ML SYR SUBQ SCH (08:33)
[2020-01-23] MEDS: ISOSORBIDE MONONITRATE 30 MG TABER PO SCH ×2 (08:34→20:20)
[2020-01-23] MEDS: HYDROCHLOROTHIAZIDE 25 MG TAB PO SCH (08:35)
[2020-01-23] MEDS: LOSARTAN 50 MG TAB PO SCH (08:36)
[2020-01-23] MEDS: amLODIPine 5 MG TAB PO SCH (08:38)
[2020-01-23] MEDS: METOPROLOL 25 MG TAB PO SCH (08:38)
--- NOTE | 2020-01-23 08:42 | NUR ---
ADMINISTERED SCHEDULED MEDICATION, MEDICATION EDUCATION GIVEN, PT VERBALIZED UNDERSTANDING, PT TOLERATED MEDICATION WELL, PT IS STABLE, PT ON 4L NC O2, CALL LIGHT WITHIN REACH.
[2020-01-23] MEDS ORDERED: FUROSEMIDE 20 MG/2 ML VIAL IVP SCH (10:15)
--- NOTE | 2020-01-23 10:40 | NUR ---
CALLED DR POE REGARDING PT COVID-[address] INFORMED [address] PT HAS RESULTED NEGATIVE ON COVID-19 ON 01/16. INFORMED DR POE PT HAS SODIUM 131, POTASSIUM 3.3 AND MAGNESIUM 1.5, DR POE STATED HE WOULD LOOK AT LABS WHEN HE CAME IN.
[2020-01-23 10:43] LABS: BASOPHILS % (AUTO) 0.3 % (0.0-2.0); EOSINOPHILS # (AUTO) 1.2 K/uL (0-0.4); EOSINOPHILS % (AUTO) 10.4 % (0.0-4.0); HEMATOCRIT 31.7 % (36-48); HEMOGLOBIN 10.7 g/dL (12.0-16.0); LYMPHOCYTES # (AUTO) 0.9 K/uL (2.5-16.5); LYMPHOCYTES % (AUTO) 8.2 % (20.5-51.1); MEAN CORPUSCULAR HEMOGLOBIN 32 pg (27-31); MEAN CORPUSCULAR HGB CONC 34 g/dL (33-37); MEAN CORPUSCULAR VOLUME 95.1 fL (80-94); MONOCYTES # (AUTO) 0.6 K/uL (0.8-1.0); NEUTROPHILS # (AUTO) 8.5 K/uL (1.8-7.7); NEUTROPHILS % (AUTO) 76.1 % (42.2-75.2); PLATELET COUNT (AUTO) 146 K/uL (140-450); RED BLOOD CELL COUNT(AUTO) 3.33 MIL/uL (4.20-5.40); RED CELL DISTRIBUTION WIDTH 14.3 % (11.6-13.7); WHITE BLOOD COUNT (AUTO) 11.2 K/uL (4.8-10.8)
[2020-01-23 10:50] LABS: ANION GAP 13.5 (8-16); CARBON DIOXIDE 22.8 mmol/L (21-32); CHLORIDE 98 mmol/L (98-107); CREATININE 1.8 mg/dL (0.6-1.3); GLUCOSE 198 mg/dL (74-106); POTASSIUM 3.3 mmol/L (3.5-5.1); SODIUM SERUM 131 mmol/L (136-145); UREA NITROGEN, BLOOD 14 mg/dL (7-18)
[2020-01-23 12:00] VITALS: BP 105/51
[2020-01-23] MEDS: FUROSEMIDE 20 MG/2 ML VIAL IVP SCH ×2 (13:00→20:21)
--- NOTE | 2020-01-23 13:00 | NUR ---
GAVE REPORT TO NURSE BARLOW FOR CONTINUITY OF CARE, PT IS STABLE.
[2020-01-23] MEDS: INSULIN LISPRO SLIDING SCALE 100 UNITS/ML VIAL SUBQ PRN ×2 (13:03→18:12)
--- NOTE | 2020-01-23 13:12 | NUR ---
ADMINISTERED 2 UNIT OF HUMALOG FOR BLOOD SUGAR OF 154, ADMINISTERED SCHEDULE MEDICATION, MEDICATION GIVEN, PT VERBALIZED UNDERSTANDING, PT IS STABLE.
--- NOTE | 2020-01-23 14:40 | NUR ---
RECEIVED REPORT FROM CIVIL ENGINEERING ASSISTANT RN FOR CONTINUITY OF CARE. PT IN STABLE CONDITION AT THIS TIME. WILL CONTINUE TO ROUND FREQUENTLY ON PT.
[2020-01-23 16:00] VITALS: BP 121/62
--- NOTE | 2020-01-23 16:26 | NUR ---
PT FAMILY CALLED AND STATED THAT THEY WILL BE TAKING PT AMA IF PT IS NOT D/C TODAY. PER FAMILY, PT IS CRYING AND IS TELLING THEM SHE IS VERY HUNGRY AND DOES NOT LIKE THE FOOD BEING SERVED TO HER. DUE TO PT CCHO DIET IN HOSPITAL, FAMILY IS NOT ALLOWED TO BRING PT FOOD FROM HOME(PER CHARGE WILLIAN). SPOKE WITH DR. POE BEFOREHAND AND HE STATED THAT PT COULD NOT BE D/C BECAUSE PT WILL NEED O2 AT HOME BUT O2 HAS NOT BEEN DELIVERED. PER FAMILY THEY STATED THAT PT O2 WAS DELIVERED YESTERDAY AND THEY ARE AWARE OF HOW TO USE IT. PT HAS PORTABLE O2 MACHINE IN HOSPITAL TO USE EN ROUTE HOME WHEN SHE IS D/C. PAGED DR. POE ONCE MORE TO CLARIFY MISCOMMUNICATION. AWAITING HIS CALLBACK.
--- NOTE | 2020-01-23 18:57 | NUR ---
NEVER CALLED BACK. NEED TO REPORT LOW MAG AND POTASSIUM. PER RN CHERELLE, SHE NOTIFIED BUT HE NEVER PUT ORDERS IN WHEN HE CAME TO UNIT. WILL ENDORSE TO LOGISTICS RESEARCH ENGINEER RN.
--- NOTE | 2020-01-23 19:00 | NUR ---
RECEIVED BEDSIDE REPORT FROM DAY SHIFT NURSE. PATIENT IS AWAKE, ALERT, AND COOPERATIVE. RESPIRATION EVEN UNLABORED ON 4L NC O2. NO DISTRESS NOTED. SKIN IS WARM AND DRY. IV PATENT AND INTACT. PLAN OF CARE WAS DISCUSSED. ALL SAFETY MEASURES IN PLACE. BED IS AT LOW POSITION. CALL LIGHT WITHIN REACH AND VERBALIZES ITS USE. WILL CONTINUE TO MONITOR.
--- NOTE | 2020-01-23 19:35 | NUR ---
ENDORSED PT TO PIPE STEM REPAIRER FOR CONTINUITY OF CARE. PT IN STABLE CONDITION AT THIS TIME. ENDORSED AWAITING CALL BACK TO REPORT ABNORMAL NA AND K. PIPE STEM REPAIRER RN MINDY VERBALIZED UNDERSTANDING.
[2020-01-23 20:00] VITALS: BP 113/57
--- NOTE | 2020-01-23 20:00 | NUR ---
INITIAL ASSESSMENT DONE. VITALS WERE TAKEN. PATIENT IN STABLE CONDITION. SATING 93% ON 4L NC O2. NO DISTRESS NOTED, WILL CONTINUE TO MONITOR.
[2020-01-23] MEDS: SIMVASTATIN 20 MG TAB PO SCH (20:20)
[2020-01-23] MEDS: ATORVASTATIN 20 MG TAB PO SCH (20:20)
--- NOTE | 2020-01-23 20:21 | NUR ---
ALL SCHEDULED MEDS WERE GIVEN PER ORDER. NO ASE NOTED. WILL CONTINUE TO MONITOR.
--- NOTE | 2020-01-23 21:07 | NUR ---
PT IS COMFORTABLE ON 4LNC NO DISTRESS NOTED AT THIS TIME
--- NOTE | 2020-01-23 22:03 | NUR ---
AMBULATED PATIENT TO THE BATHROOM. TOLERATED IT WELL. NO DISTRESS NOTED. WILL CONTINUE TO MONITOR.
--- NOTE | 2020-01-23 23:17 | NUR ---
CHECKED PATIENT. PATIENT SLEEPING RESPIRATION EVEN UNLABORED ON 4L NC O2. NO DISTRESS NOTED. WILL CONTINUE TO MONITOR.
[2020-01-24] VITALS: BP 110/58
--- NOTE | 2020-01-24 | NUR ---
VITALS WERE TAKEN. PATIENT IN STABLE CONDITION. NO DISTRESS NOTED. WILL CONTINUE TO MONITOR.
[2020-01-24 01:10] LABS: APPEARANCE,URINE CLEAR (CLEAR); BILIRUBIN,URINE NEGATIVE (NEGATIVE); BLOOD, URINE NEGATIVE (NEGATIVE); COLOR,URINE YELLOW (YELLOW); LEUKOCYTE ESTERASE ,URINE 1+ (NEGATIVE); NITRITE, URINE NEGATIVE (NEGATIVE); PH,URINE 5.5 (5.0-9.0); UGLUCOSE NEGATIVE (NEGATIVE)
[2020-01-24 01:27] LABS: RBC,URINE 0 /HPF (0-5); WBC,URINE 0-5 /HPF (0-5)
--- NOTE | 2020-01-24 02:00 | NUR ---
CHECKED PATIENT. PATIENT SLEEPING RESPIRATION EVEN UNLABORED ON 4L NC O2. NO DISTRESS NOTED. WILL CONTINUE TO MONITOR.
[2020-01-24 04:00] VITALS: BP 100/52
--- NOTE | 2020-01-24 04:03 | NUR ---
VITALS WERE TAKEN. PATIENT IN STABLE CONDITION. NO DISTRESS NOTED. WILL CONTINUE TO MONITOR.
[2020-01-24] MEDS: DILTIAZEM 60 MG TAB PO SCH ×2 (05:09→12:32)
[2020-01-24] MEDS: FUROSEMIDE 20 MG/2 ML VIAL IVP SCH ×2 (05:09→12:32)
[2020-01-24 06:11] LABS: BASOPHILS % (AUTO) 0.4 % (0.0-2.0); EOSINOPHILS # (AUTO) 1.5 K/uL (0-0.4); HEMATOCRIT 35.2 % (36-48); LYMPHOCYTES # (AUTO) 1.2 K/uL (2.5-16.5); MEAN CORPUSCULAR HEMOGLOBIN 32 pg (27-31); MEAN CORPUSCULAR HGB CONC 34 g/dL (33-37); MEAN CORPUSCULAR VOLUME 94.1 fL (80-94); MONOCYTES # (AUTO) 0.5 K/uL (0.8-1.0); MONOCYTES % (AUTO) 4.8 % (1.7-9.3); NEUTROPHILS # (AUTO) 6.3 K/uL (1.8-7.7); PLATELET COUNT (AUTO) 154 K/uL (140-450); RED BLOOD CELL COUNT(AUTO) 3.74 MIL/uL (4.20-5.40); RED CELL DISTRIBUTION WIDTH 14.5 % (11.6-13.7); WHITE BLOOD COUNT (AUTO) 9.6 K/uL (4.8-10.8)
[2020-01-24 06:34] LABS: MAGNESIUM 1.4 mg/dL (1.8-2.4); PHOSPHORUS 3.6 mg/dL (2.5-4.9)
[2020-01-24] MEDS: BLOOD GLUCOSE MONITORING 1 DEV DEV FS SCH ×2 (06:42→11:30)
[2020-01-24 07:05] LABS: ANION GAP 15.8 (8-16); CARBON DIOXIDE 23.2 mmol/L (21-32); CHLORIDE 99 mmol/L (98-107); CREATININE 1.6 mg/dL (0.6-1.3); GLUCOSE 138 mg/dL (74-106); SODIUM SERUM 135 mmol/L (136-145); UREA NITROGEN, BLOOD 14 mg/dL (7-18)
--- NOTE | 2020-01-24 07:14 | NUR ---
ENDORSED GIVEN TO DAY SHIFT NURSE. PATIENT IN STABLE CONDITION.
--- NOTE | 2020-01-24 07:18 | NUR ---
RECEIVED REPORT FROM PRINTING WORKER SUPERVISOR NURSE. AOX4, NO C/O PAIN, NO SOB, RESPIRATIONS ARE EVEN AND UNLABORED. ON NC AT 4L. IV ON RH 24G ON SALINE LOCK. TELEMONITOR ATTACHED. PLAN OF CARE DISCUSSED. PT VERBALIZED UNDERSTANDING. SAFETY PRECAUTIONS IN PLACE. CALL LIGHT WITHIN REACH. WILL CONTINUE TO MONITOR
[2020-01-24 07:47] LABS: NEUTROPHILS % (AUTO) 65.9 % (42.2-75.2)
[2020-01-24 07:48] LABS: EOSINOPHILS % (AUTO) 15.9 % (0.0-4.0)
[2020-01-24 08:00] VITALS: BP 110/55
[2020-01-24] MEDS: ISOSORBIDE MONONITRATE 30 MG TABER PO SCH (08:31)
[2020-01-24] MEDS: HYDROCHLOROTHIAZIDE 25 MG TAB PO SCH (08:31)
[2020-01-24] MEDS: METOPROLOL 25 MG TAB PO SCH (08:31)
[2020-01-24] MEDS: LOSARTAN 50 MG TAB PO SCH (08:31)
[2020-01-24] MEDS: amLODIPine 5 MG TAB PO SCH (08:31)
[2020-01-24] MEDS: ENOXAPARIN 40 MG/0.4 ML SYR SUBQ SCH (09:00)
--- NOTE | 2020-01-24 09:10 | NUR ---
DUE MORNING MEDS GIVEN. TOLERATED WELL
[2020-01-24] MEDS ORDERED: MAG SULF 2000 MG/WATER PREMIX 50 ML IV SCH (10:30)
--- NOTE | 2020-01-24 11:15 | NUR ---
PTT IN BED WATCHING TV. NO C/O PAIN NO SOB
[2020-01-24 12:00] VITALS: BP 98/50
[2020-01-24] MEDS ORDERED: DILT60TA94 PO (12:08)
[2020-01-24] MEDS ORDERED: METO25TA PO (12:08)
[2020-01-24] MEDS ORDERED: FURO-572 PO (12:08)
[2020-01-24] MEDS ORDERED: LOSA50TA1 PO (12:08)
[2020-01-24] MEDS ORDERED: APIX2.5 PO (12:15)
--- NOTE | 2020-01-24 12:30 | NUR ---
PT IN BED EATING LUNCH. NO APPARENT DISTRESS
--- NOTE | 2020-01-24 14:00 | NUR ---
DISCHARGE INSTRUCTIONS AND PRESCRIPTION GIVEN TO PT AND PT'S DAUGHTER, NÉSTOR, VIA PHONE. THEY VERBALIZED UNDERSTANDING. PT WILL BE [facility] [phone]. CALLED TO CONFIRM BUT NO ANSWER. LEFT VOICEMAIL. PT WILL BE ON O2 VIA NC 4L AT HOME. IV REMOVED WITH LUMEN INTACT. ID BAND REMOVED. TELE MONITOR REMOVED. AWAITING FOR FAMILY TO BRING CHANGE OF CLOTHING FOR PT.
--- NOTE | 2020-01-24 15:00 | NUR ---
DISCHARGED PT IN STABLE CONDITION ON O2 4L VIA NC. PICKED UP BY FAMILY VIA PRIVATE VEHICLE
== END 2020-01-24 14:55 | disposition home or self-care (01) | DRG 871 ==
LOC: EEVIPCON 16:18 → MED 16:18 → MMU 20:27 → MTU 01-20 16:41 → MMU 01-23 11:20
PROVIDERS: ADMIT Internal Medicine; ATTEND Internal Medicine
DX: A41.9 Sepsis, unspecified organism (principal); J96.01 Acute respiratory failure with hypoxia; I50.43 Acute on chronic combined systolic (congestive) and diastolic (congestive) heart failure; N17.0 Acute kidney failure with tubular necrosis; J18.9 Pneumonia, unspecified organism; I13.0 Hypertensive heart and chronic kidney disease with heart failure and stage 1 through stage 4 chronic kidney disease, or unspecified chronic kidney disease; N39.0 Urinary tract infection, site not specified; N18.9 Chronic kidney disease, unspecified; E86.0 Dehydration; E11.22 Type 2 diabetes mellitus with diabetic chronic kidney disease; E66.9 Obesity, unspecified; E78.5 Hyperlipidemia, unspecified; Z79.01 Long term (current) use of anticoagulants; I48.0 Paroxysmal atrial fibrillation; Z20.828 Contact with and (suspected) exposure to other viral communicable diseases; Z95.810 Presence of automatic (implantable) cardiac defibrillator; Z68.28 Body mass index [BMI] 28.0-28.9, adult
CPT/HCPCS: 36415; 71045; 71250; 76770; 80048; 80053; 81001; 81003; 82948; 83605; 83735; 83880; 84100; 84300; 84484; 85025; 85610; 85651; 85730; 87040; 87081; 87086; 93005; 93970; 96361; 96365; 96375; 97110; 97116; 97161-GP; 97530; 99285; J0456; J0696; J1650; J1940; J2405; J3475; J3490; J7030; J7060; Q0092; U0003-CS